=== PATIENT | female | born 1955 ===

== ENCOUNTER 2017-09-30 11:30 | Inpatient (IN) | payer OTHER ==
[~2017-09-30] VITALS: Ht 175.3 cm; Wt 72.6 kg
[2017-09-30] MEDS ORDERED: PROZAC20 MG PO (14:25)
[2017-09-30] MEDS ORDERED: COUMADIN4 MG PO (14:26)
[2017-09-30] MEDS ORDERED: ATIVAN1 M1 PO (14:26)
[2017-09-30] MEDS ORDERED: LOVENOX PO (14:27)
== END 2017-10-10 18:16 | disposition home or self-care (01) | DRG 331 ==
LOC: O/R 10-07 05:54 → SURG 10-07 05:54
PROVIDERS: Colon & Rectal Surgery
PROC: 0DTP4ZZ Resection of Rectum, Percutaneous Endoscopic Approach (ICD-10-PCS; 2017-10-07)
PROC: 0D1B4Z4 Bypass Ileum to Cutaneous, Percutaneous Endoscopic Approach (ICD-10-PCS; 2017-10-07)
PROC: 07TC4ZZ Resection of Pelvis Lymphatic, Percutaneous Endoscopic Approach (ICD-10-PCS; 2017-10-07)
PROC: 0DJD8ZZ Inspection of Lower Intestinal Tract, Via Natural or Artificial Opening Endoscopic (ICD-10-PCS; 2017-10-07)
PROC: 0DTN4ZZ Resection of Sigmoid Colon, Percutaneous Endoscopic Approach (ICD-10-PCS; principal; 2017-10-07 07:00)
DX: D12.8 Benign neoplasm of rectum (principal); Z85.048 Personal history of other malignant neoplasm of rectum, rectosigmoid junction, and anus

== ENCOUNTER 2017-12-10 07:42 | Outpatient (CLI) | payer OTHER ==
[~2017-12-10 07:42] MED LIST: ATIVAN1 M1 PO; COUMADIN4 MG PO; LOVENOX PO; PROZAC20 MG PO
== END 2017-12-10 07:47 | disposition home or self-care (01) ==
LOC: RX STUDY 07:42
DX: C20 Malignant neoplasm of rectum (principal)

== ENCOUNTER 2018-02-02 09:31 | Inpatient (IN) | payer OTHER ==
[~2018-02-02] VITALS: Ht 175.3 cm; Wt 66.2 kg
== END 2018-02-12 19:08 | disposition home or self-care (01) | DRG 331 ==
LOC: EDSEX 02-10 06:30 → O/R 02-10 06:30 → SURH 02-10 06:30
PROVIDERS: Colon & Rectal Surgery
PROC: 0DQB4ZZ Repair Ileum, Percutaneous Endoscopic Approach (ICD-10-PCS; principal; 2018-02-10 17:30)
DX: C20 Malignant neoplasm of rectum (principal); Z43.2 Encounter for attention to ileostomy

== ENCOUNTER 2018-10-16 08:14 | Day surgery (SDC) | payer OTHER | END 2018-10-16 10:55 | disposition home or self-care (01) | LOC: AMB-ENDOS 08:14 | DX: C20 Malignant neoplasm of rectum (principal) ==